=== PATIENT | female | born 1950 | race Caucasian/White ===

== ENCOUNTER → 2023-10-19 15:03 | Outpatient (REF) | payer MEDICARE, OTHER, SELFPAY ==
[2023-10-20 14:31] LABS: Lyme Antibody Screen, EIA Negative (Negative)
== END ==
LOC: REG 15:03
PROVIDERS: ATTENDING PHYSICIAN Specialist; FAMILY PHYSICIAN Internal Medicine
DX: M25.461 Effusion, right knee (principal)
CPT/HCPCS: 36415; 86618

== ENCOUNTER → 2023-10-27 19:01 | Outpatient (REF) | payer MEDICARE, OTHER, SELFPAY | LOC: RAD 19:01 | PROVIDERS: ATTENDING PHYSICIAN Nurse Practitioner Adult Health | DX: R60.0 Localized edema (principal); R63.5 Abnormal weight gain; R07.89 Other chest pain | CPT/HCPCS: 71046 ==

== ENCOUNTER → 2023-10-28 08:36 | Outpatient (REF) | payer MEDICARE, OTHER, SELFPAY ==
[2023-10-28 09:54] LABS: % Basophils 0.8 % (0-2); % Eosinophils 2.3 % (0-6); % Immature Granulocytes 0.3 % (0-0.5); % Monocytes 10.9 % (1.7-9.3); % Neutrophils 59.7 % (42.2-75.2); Absolute Basophils 0.1 10^3/uL (0-0.2); Absolute Eosinophils 0.2 10^3/uL (0-0.7); Absolute Lymphocytes 1.7 10^3/uL (1.2-3.4); Absolute Monocytes 0.7 10^3/uL (0.1-0.6); Absolute Neutrophils 3.8 10^3/uL (1.4-6.5); Hematocrit 41.7 % (37.0-47.0); Hemoglobin 13.9 g/dL (12.0-16.0); Mean Corp Hgb Conc. 33.3 g/dL (33.0-37.0); Mean Corpuscular Hgb 32.7 pg (27.0-31.0); Mean Corpuscular Volume 98.1 fL (81.0-99.0); Mean Platelet Volume 10.6 fL (7.4-10.4); Nucleated Red Blood Cells % 0 %; Platelet Count 212 10^3/uL (130-400); Red Blood Cell Count 4.25 10^6/uL (4.20-5.40); White Blood Cell Count 6.4 10^3/uL (4.8-10.8)
[2023-10-28 10:19] LABS: ALT (SGPT) 22 U/L (0-35); AST (SGOT) 23 U/L (14-36); Albumin 3.9 g/dl (3.5-5.0); Alkaline Phosphatase 78 U/L (38-126); Blood Urea Nitrogen 23 mg/dl (7-17); Calcium 9.5 mg/dl (8.4-10.2); Carbon Dioxide 27 mmol/L (22-30); Chloride 106 mmol/L (98-107); Glucose 117 mg/dl (70-99); Potassium 4.4 mmol/L (3.5-5.1); Sodium 140 mmol/L (135-145); Total Bilirubin 0.4 mg/dl (0.2-1.3); Total Protein 6.2 g/dl (6.3-8.2); eGFR 58.75
[2023-10-28 10:27] LABS: NT-proBNP 322 pg/ml
[2023-10-28 11:18] LABS: Free T4 0.91 ng/dl (0.78-2.19)
== END ==
LOC: REG 08:36
PROVIDERS: ATTENDING PHYSICIAN Nurse Practitioner Adult Health
DX: R60.0 Localized edema (principal); R63.5 Abnormal weight gain
CPT/HCPCS: 36415; 80053; 83880; 84439; 84443; 85025

== ENCOUNTER → 2023-11-18 11:47 | Outpatient (REF) | payer MEDICARE, OTHER, SELFPAY | LOC: HWRAD 11:47 | PROVIDERS: ATTENDING PHYSICIAN Internal Medicine Endocrinology, Diabetes & Metabolism; FAMILY PHYSICIAN Internal Medicine | DX: Z12.31 Encounter for screening mammogram for malignant neoplasm of breast (principal); M85.80 Other specified disorders of bone density and structure, unspecified site; E04.2 Nontoxic multinodular goiter; M85.89 Other specified disorders of bone density and structure, multiple sites | CPT/HCPCS: 77063; 77067; 77080 ==

== ENCOUNTER → 2024-07-11 10:48 | Outpatient (REF) | payer MEDICARE, OTHER, SELFPAY | LOC: RAD 10:48 | PROVIDERS: ATTENDING PHYSICIAN Nurse Practitioner Family | DX: R05.3 Chronic cough (principal) | CPT/HCPCS: 71046 ==

== ENCOUNTER → 2024-10-01 13:25 | Outpatient (REF) | payer MEDICARE, OTHER, SELFPAY | LOC: RCS 13:25 | PROVIDERS: ATTENDING PHYSICIAN Specialist; FAMILY PHYSICIAN Internal Medicine | DX: Z01.818 Encounter for other preprocedural examination (principal) | CPT/HCPCS: 93005 ==

== ENCOUNTER 2024-12-14 13:54 | Emergency (ER) | payer MEDICARE, OTHER, SELFPAY ==
[2024-12-14 14:01] VITALS: BP 129/72
[2024-12-14 14:12] LABS: Hematocrit 37.8 % (37.0-47.0); Hemoglobin 12.4 g/dL (12.0-16.0); Mean Corp Hgb Conc. 32.8 g/dL (33.0-37.0); Mean Corpuscular Volume 98.4 fL (81.0-99.0); Nucleated Red Blood Cells % 0 %; Platelet Count 208 10^3/uL (130-400); Red Cell Dist. Width 14.6 % (11.5-14.5)
[2024-12-14 14:41] LABS: ALT (SGPT) 12 U/L (0-35); AST (SGOT) 15 U/L (14-36); Albumin 3.7 g/dl (3.5-5.0); Alkaline Phosphatase 84 U/L (38-126); Blood Urea Nitrogen 27 mg/dl (7-17); Calcium 8.5 mg/dl (8.4-10.2); Carbon Dioxide 28 mmol/L (22-30); Chloride 108 mmol/L (98-107); Glucose 164 mg/dl (70-99); Potassium 5.1 mmol/L (3.5-5.1); Sodium 138 mmol/L (135-145); Total Protein 6.0 g/dl (6.3-8.2); eGFR > 60.00
--- NOTE | 2024-12-14 15:09 | ED.GENMED ---
History of Present Illness
General
Chief Complaint: Headache
Source: patient
Exam Limitations: none
Time Seen by Provider: 12/14/24 15:07
Nursing documentation reviewed up to this point in time: agreed with
History of Present Illness
History of Present Illness:
Patient is a 74-year-old femal with past medical history of diabetes, hypertension e presents to the ER for evaluation of headache. She reports to get up this morning around 7 AM and noticed headache. She feels that it started the back of her head
and now is on the top of her head and all over. She denies any associated nausea vomiting dizziness blurry vision or light sensitivity. She denies any recent trauma or chiropractor manipulation. She did take ibuprofen this morning at 7 and then
again at 12:30 PM. She does report pain seems to have decreased to a 4 out of a 10. She reports it was a 9 out of 10 when it started. It was more of a gradual headache. She had a headache similar to this in 2021 after COVID-vaccine but typically
does not get headaches. She has not had any recent vaccines.
Past History
Past History
ED Past Medical History: HTN and Hypercholesterolemia
ED Past Surgical History: Appendectomy, Cholecystectomy, Gynecological, Tonsilectomy and Other
Social History
Living: with family
Phy Exam
General Physical Exam
General Presentation: no apparent distress
General age: appears stated age
General Skin: warm and dry
General Habitus: normal
General Mental: alert
General Hydration: appears well hydrated
ENT Exam
ENT Exam: EOMI and neck supple
Eye Exam
Eye Exam: PERRL and EOMI
Eye Exam General: PERRL: bilateral and EOM intact: bilateral
Pupil Exam: Bilateral: round and reactive
Neurological Exam
Neurological Exam: alert, oriented x3, no motor deficits, no sensory deficits and speech normal
Cerebellar
Cerebellar Function: normal finger to nose
Musculoskeletal Exam
Musculoskeletal Exam: full ROM and other (nontender over temporal region b/l )
Skin Exam
Skin Exam: normal color and warm/dry
Psychiatric Exam
Psychiatric Exam: normal mood/affect
Course
Orders/Labs/Results
Orders:
Orders
12/14/24 14:07
Complete Blood Count/With Diff Urgent
Comprehensive Metabolic Panel Urgent
12/14/24 15:22
CT Head W/o Iv Contrast Urgent
Comment:
Reason For Exam: headache
Metoclopramide [Reglan] 10 mg IV NOW STA
12/14/24 15:23
Diphenhydramine [Benadryl] 25 mg IV NOW STA
12/14/24 15:53
0.9% Sodium Chloride 1000 ml [Nss] 1,000 ml IV BOLUS
12/14/24 16:30
Ketorolac [Toradol] 15 mg IV NOW STA
Abnormal Lab Results
12/14/24
14:07
RBC 3.84 L 10^6/uL
(4.20-5.40)
MCH 32.3 H pg
(27.0-31.0)
MCHC 32.8 L g/dL
(33.0-37.0)
RDW 14.6 H %
(11.5-14.5)
Absolute Monos (auto) 0.7 H 10^3/uL
(0.1-0.6)
Monocytes % 10.2 H %
(1.7-9.3)
Chloride 108 H mmol/L
(98-107)
BUN 27 H mg/dl
(7-17)
Glucose 164 H mg/dl
(70-99)
Total Protein 6.0 L g/dl
(6.3-8.2)
12/14/24 14:07
12/14/24 14:07
Vital Signs
Initial and Last Documented VS:
Initial Vital Signs
Temp Pulse Resp BP Pulse Ox
97.6 F 80 16 129/72 97
12/14/24 14:01 12/14/24 14:01 12/14/24 14:01 12/14/24 14:01 12/14/24 14:01
Last Documented Vital Signs
Temp Pulse Resp BP Pulse Ox
97.6 F 78 20 135/78 98
12/14/24 14:01 12/14/24 18:00 12/14/24 18:00 12/14/24 18:00 12/14/24 18:00
MDM/Problems Addressed
Differential Diagnosis Includes:
Not limited to atypical headache, migraine, less likely intracranial hemorrhage, mass, less likely dissection
MDM/Problems Addressed:
Symptoms are consistent with headache. No concerning symptoms for dissection, less likely intracranial hemorrhage. patient nontender over the temporal artery denies any recent fever chills no evidence of meningismus. Will obtain CAT scan and treat
with Reglan Benadryl fluids.
CT neg . pt was given toradol in addition to above medications and feeling much better asking to go home. She remains nontoxic-appearing with normal neurologic exam. No fever. Labs reviewed patient's BUN is elevated she was given fluids here.
stable for discharge home.
*Radiology
Radiology exam reviewed: radiology read reviewed
*Pulse Oximetry
SaO2: 97
Oxygen Mode of Delivery: Room air
Patient hypoxic: no
*Critical Care Note
Total Time (30-74mins, 75-104mins- exclusive of procedures): Not Applicable
ED Attending Note
-
Portions of this chart may have been created with voice recognition software.� Occasional wrong word or��sound alike� substitutions may have occurred due to the inherent limitations of voice recognition software.
Discharge Plan
Departure
Patient Disposition: Home (Routine Discharge)
Date of Disposition: 12/14/24
Time of Disposition: 18:59
Patient with high blood pressure during this ER visit?: Yes
Condition: Fair
Covid-19: Not Applicable
Discharge Problem:
Headache
Instructions: Headache, Adult (DC)
Prescriptions:
No Action
loperamide 2 mg Capsule
2 mg PO BID
atenolol 25 mg Tablet
25 mg PO BID
rosuvastatin 5 mg Tablet
5 mg PO HS
metformin 1,000 mg Tablet Extended Release 24 Hr
1,000 mg PO HS
Janumet 50-1,000 mg Tablet
1 tab PO DAILY
cholecalciferol (vitamin D3) [Vitamin D3] 50 mcg (2,000 unit) Tablet
50 mcg PO BID
cyanocobalamin (vitamin B-12) 1,000 mcg Tablet
1,000 mcg PO DAILY
lisinopril 10 mg Tablet
10 mg PO BID Qty: 1 0RF
Rx Instructions:
HOLD if systolic blood pressure <130 while on Oxycodone
Viactiv 500-100-40 mg-unit-mcg Tablet,Chewable
1 tab PO BID
Glucosamine Chondroitin 550-30-1 mg Capsule
1 cap PO BID
multivitamin Tablet
1 tab PO DAILY
Referrals:
Nicole Gudino MD [Family Provider, Internal Medicine]
Activity Restrictions/Additional Instructions:
As discussed your CAT scan was negative.
please follow-up with family doctor for reevaluation. You may continue to alternate between Tylenol and ibuprofen. Return if any worsening of symptoms
Interventions
Interventions:
*Risk Screen - Suicide Last Done: 12/14/24 14:01
*General Assessment Last Done: 12/14/24 19:16
*Neglect/Abuse Screening Last Done: 12/14/24 14:01
*ED- Fall Risk Assessment Last Done: 12/14/24 19:16
*ED COVID-19 Vaccine History Last Done: 12/14/24 16:00
*Nursing Disposition Last Done: 12/14/24 19:16
ED- Neurological Assessment Last Done: 12/14/24 16:00
Discharge Date and Time
Discharge Date/Time: 12/14/24 19:19
Print Language: IVORIAN
[2024-12-14] MEDS: BENADRYL 25 MG IV (15:52)
[2024-12-14] MEDS: REGLAN 10 MG IV (15:52)
[2024-12-14] MEDS: NSS 1000 IV (15:53)
[2024-12-14 16:38] VITALS: BMI 26.4
[2024-12-14] MEDS: TORADOL 15 MG IV (16:57)
[2024-12-14 18:00] VITALS: BP 135/78
== END 2024-12-14 19:19 | disposition home or self-care (01) ==
LOC: EMR 13:54
PROVIDERS: EMERGENCY PHYSICIAN Emergency Medicine; FAMILY PHYSICIAN Internal Medicine
DX: R51.9 Headache, unspecified (principal); E11.9 Type 2 diabetes mellitus without complications; I10 Essential (primary) hypertension; E78.00 Pure hypercholesterolemia, unspecified; Z90.49 Acquired absence of other specified parts of digestive tract
CPT/HCPCS: 99284; 96374; 96375; 96361; 70450; 80053; 85025

== ENCOUNTER → 2025-01-17 17:32 | Outpatient (REF) | payer MEDICARE, OTHER, SELFPAY | LOC: WDC 17:32 | PROVIDERS: ATTENDING PHYSICIAN Internal Medicine | DX: Z12.31 Encounter for screening mammogram for malignant neoplasm of breast (principal) | CPT/HCPCS: 77063; 77067 ==

== ENCOUNTER 2025-04-19 06:33 | Day surgery (SDC) | payer MEDICARE, OTHER, SELFPAY ==
[2025-04-19 10:29] LABS: Glucose - Point of Care 151 mg/dl (70-99)
== END 2025-04-19 13:12 | disposition home or self-care (01) ==
LOC: GI 06:33
PROVIDERS: ATTENDING PHYSICIAN Internal Medicine; FAMILY PHYSICIAN Internal Medicine
DX: Z12.11 Encounter for screening for malignant neoplasm of colon (principal); K52.9 Noninfective gastroenteritis and colitis, unspecified; K64.8 Other hemorrhoids; K57.30 Diverticulosis of large intestine without perforation or abscess without bleeding; D12.0 Benign neoplasm of cecum; D12.2 Benign neoplasm of ascending colon; D12.3 Benign neoplasm of transverse colon; D12.4 Benign neoplasm of descending colon; D12.5 Benign neoplasm of sigmoid colon; D12.8 Benign neoplasm of rectum; K63.5 Polyp of colon; Z86.0100 Personal history of colon polyps, unspecified
CPT/HCPCS: 45385; 45380; 82962; 88305